=== PATIENT | female | born 1985 | race Caucasian/White ===

== ENCOUNTER 2018-04-01 13:13 | Emergency (ER) | payer OTHER ==
[2018-04-01 13:39] VITALS: RESP 18; TEMP 98
[2018-04-01] MEDS ORDERED: HYDROcodone/APAP 10-325MG 1 EACH TAB PO ONE (14:29)
[2018-04-01] MEDS ORDERED: GABAPENTIN 100 MG CAP PO STA (14:29)
[2018-04-01] MEDS ORDERED: ACYCLOVIR 400 MG/10 ML CUP PO ONE (14:29)
--- NOTE | 2018-04-01 14:42 | ED ---
Skin/Abscess/FB HPI - General Chief complaint: Skin/Abscess/Foreign Body Stated complaint: bug bite on back Time Seen by Provider: 04/01/18 13:40 Source: patient, RN notes reviewed, old records reviewed Mode of arrival: ambulatory Limitations: no limitations - History of Present Illness Initial comments: this patient's a 33-year-old female presents emergency Department chief complaint of a rash for the past week on the right side of her back. Patient reports that she initially thought it was a bite. She also has history of Crohn 's. He complains that it is backing up. [facility] yesterday and anxiety for her Crohn's. He had a full workup at that time. Was told she had a urinary tract infection. Patient is currently on ciprofloxacin. Patient reports that the rash is extremely painful. - Related Data Home Medications Medication Instructions Recorded Confirmed Ciprofloxacin HCl [Cipro] 500 mg PO Q12HR 04/01/18 04/01/18 Previous Rx's Medication Instructions Recorded Acyclovir 800 mg PO 5XD 7 Days 04/01/18 Gabapentin [Neurontin] 300 mg PO BID #21 cap 04/01/18 HYDROcodone/APAP 5-325MG [[place] 1 tab PO Q6HR PRN 3 Days #12 tab 04/01/18 5-325] Allergies Allergy/AdvReac Type Severity Reaction Status Date / Time No Known Allergies Allergy Verified 10/31/15 15:01 Review of Systems ROS Statement: Those systems with pertinent positive or pertinent negative responses have been documented in the HPI. ROS Other: All systems not noted in ROS Statement are negative. Past Medical History Additional Past Medical History / Comment(s): Crohns History of Any Multi-Drug Resistant Organisms: C-DIFF Date of last positivie culture/infection: 2013 MDRO Source:: stool Past Surgical History: Tubal Ligation Additional Past Surgical History / Comment(s): RIGHT BREAST LUMPECTOMY Past Psychological History: Anxiety Smoking Status: Never smoker Past Alcohol Use History: Occasional Past Drug Use History: Marijuana General Exam - General Exam Comments Initial Comments: 33-year-old female. Alert and oriented. No acute distress. General: Well appearing, well nourished, in no distress. Oriented x 3, normal mood and affect . Ambulating without difficulty. Skin: patient has a shingles like rash over the T6 dermatome radiating from the right flank area around the rib cage underneath breasts. The lesions are crusted over. There is new erythematous lesions as well. Hair: Normal texture and distribution. HEENT: Head: Normocephalic, atraumatic, no visible or palpable masses, depressions, or scaring. Eyes: Visual acuity intact, conjunctiva clear, sclera non-icteric, EOM intact, PERRL. Ears: EACs clear, TMs translucent & cone of light visualized. hearing intact. Nose: No external lesions, mucosa non-inflamed, septum and turbinates normal Mouth: Mucous membranes moist, no mucosal lesions. Teeth/Gums: No obvious caries or periodontal disease. No gingival inflammation or significant resorption. Pharynx: Mucosa non-inflamed, no tonsillar hypertrophy or exudate Neck: Supple, without lesions, bruits, or adenopathy, thyroid non-enlarged and non-tender Heart: No cardiomegaly or thrills; regular rate and rhythm, no murmur or gallop Lungs: Clear to auscultation and percussion Abdomen: Bowel sounds normal, no tenderness, organomegaly, masses, or hernia Back: patient has evidence of she will like rash over the T12 6 dermatome. Extremities: No amputations or deformities, cyanosis, edema or varicosities, peripheral pulses intact Musculoskeletal: Normal gait and station. No misalignment, asymmetry, crepitation, defects, tenderness, masses, effusions, decreased range of motion, instability, atrophy or abnormal strength or tone in the head, neck, spine, ribs , pelvis or extremities. Limitations: no limitations Course Vital Signs 04/01/18 04/01/18 13:35 14:46 Temperature 98 F Pulse Rate 104 H 99 Respiratory 18 18 Rate Blood Pressure 143/100 156/106 O2 Sat by Pulse 98 98 Oximetry Medical Decision Making - Medical Decision Making 33-year-old female presents emergency room and she plans rash over her back. Patient has evidence of shingles. I discussed that she needs to avoid any weight is not vaccinated for chickenpox or shingles have the virus in the past. Patient will be placed on acyclovir and she came in significant pain. Will be discharged with pain medication and gabapentin. Discussed she should follow- up with her primary care provider. I offered workup for her Crohn's disease but she declined at this time patient was treatment for the rash. Patient agrees to treatment plan will comply. Return parameters were discussed. Disposition Clinical Impression: Shingles Disposition: HOME SELF-CARE Condition: Good Instructions: Shingles (ED) Additional Instructions: Patient is to follow-up with primary care provider. Return to the emergency department if any alarming signs or symptoms occur. [facility] Take all the medications as prescribed. Patient should avoid being around immunocompromise patients, her people not had the shingles or chickenpox vaccine. [place]: [phone] [place] [id number] Appointment is Necessary Call @6AM Wednesday, Wednesday, Wednesday & 8am-11am Only take patients with no insurance or Medicaid. ---Do not accept patient with Blue Cross, Medicare, or Commerical Insurance Prescriptions: Acyclovir 800 mg PO 5XD 7 Days Gabapentin [Neurontin] 300 mg PO BID #21 cap HYDROcodone/APAP 5-325MG [[place] 5-325] 1 tab PO Q6HR PRN 3 Days #12 tab PRN Reason: Pain Is patient prescribed a controlled substance at d/c from ED?: No If prescribed controlled substance>3 days was MAPS reviewed?: No When asked, does pt state using other controlled substances?: No Referrals: Denzel Mares DO [Primary Care Provider] - 1-2 days Time of Disposition: 14:38
[2018-04-01] MEDS ORDERED: ACYCLOVIR 200 MG CAP PO ONE (14:45)
[2018-04-01 14:47] VITALS: BP 156/106; PULSE 99
== END 2018-04-01 14:48 | disposition home or self-care (01) ==
LOC: EC 13:13
DX: B02.9 Zoster without complications (principal)
CPT/HCPCS: 99282

== ENCOUNTER 2018-07-20 07:56 | Day surgery (SDC) | payer OTHER ==
[2018-07-19 10:16] VITALS: BMI 17.9
[~2018-07-20 07:56] MED LIST: LACTATED RINGERS 1,000 ML IV SCH; LIDOCAINE 1% 20 ML VIAL (10MG/ML) FOR IV START INTRADERMA PRN
[2018-07-20 08:22] VITALS: TEMP 98.1
[2018-07-20] MEDS ORDERED: HYDROCORTISONE SUCCINATE 100 MG/2 ML VIAL IVP ONE (08:28)
[2018-07-20 08:34] LABS: Glucose,Whole Blood 83 mg/dL (75-99)
[2018-07-20] MEDS ORDERED: PROPOFOL 10 MG/ML 20 ML VIAL IV ONE (08:57)
--- NOTE | 2018-07-20 09:20 | P.PCN ---
Date of Procedure: 07/20/18 Procedure(s) Performed: BRIEF HISTORY: Patient is a 33-year-old pleasant white female, scheduled for an elective colonoscopy as a part of value should long standing history of CROHN'S colitis diagnosed 20 years ago. She was maintained on Humira in 2014 2016 but her insurance changed and hence she stopped the medication about a year ago. Her last 4 months she is been having intermittent problems daily with blood or mucus in the stool. She is hence scheduled for colonoscopy to evaluate further. PROCEDURE PERFORMED: Colonoscopy with random biopsies PREOPERATIVE DIAGNOSIS: Long-standing history of Crohn's colitis now with abdominal pain, diarrhea and rectal bleeding IV sedation per Anesthesia. PROCEDURE: After informed consent was obtained, the patient, was brought into the endoscopy unit. IV sedation was administered by Anesthesia under continuous monitoring. Digital rectal examination was normal. Initially the Olympus CF- 160 flexible video colonoscope was then inserted in the rectum, gradually advanced into the cecum without any difficulty. Careful examination was performed as the scope was gradually being withdrawn. Ileocecal valve and the appendiceal orifice were visualized and appeared normal. Prep was excellent. Terminal ileum was intubated and 20 cm which was appeared normal. Mucosa of the cecum, ascending colon, transverse colon, descending colon, had scattered superficial ulcerations with normal appearing intervening mucosa and multiple biopsies were done from this area. The mucosa of the sigmoid colon, and rectum had deep serpiginous ulcerations with some cobblestoning of the mucosa, friability, erythema and spontaneously consistent with severe Sigmoiditis. Multiple biopsies were done from this area.. Retroflexion was performed in the rectum and no lesions were seen. The patient tolerated the procedure well. IMPRESSION: Active Crohn's colitis involving the rectum and sigmoid colon with deep mucosal serpiginous ulcerations, friability of the mucosa and severe inflammation Scattered superficial serpiginous ulcerations involving the descending colon ascending colon and the cecum status post multiple biopsies. Intervening mucosa appeared normal. RECOMMENDATIONS: Findings of this examination were discussed with the patient as well as her family. She was advised to follow with the biopsy results. She will continue with prednisone 40 mg daily and she'll be seen in the office in 2 weeks.
[2018-07-20 09:26] VITALS: RESP 16
[2018-07-20 09:40] VITALS: PULSE 98
[2018-07-20 10:14] VITALS: BP 140/90
== END 2018-07-20 10:15 | disposition home or self-care (01) ==
LOC: ORWHC2ENDO 07:56
PROVIDERS: ATTEND Internal Medicine Gastroenterology
DX: K52.9 Noninfective gastroenteritis and colitis, unspecified (principal); K63.3 Ulcer of intestine; K62.89 Other specified diseases of anus and rectum; K50.10 Crohn's disease of large intestine without complications; Z79.891 Long term (current) use of opiate analgesic; Z79.52 Long term (current) use of systemic steroids; Z79.899 Other long term (current) drug therapy
CPT/HCPCS: 81025; 88305; 45380; J1720; J2704

== ENCOUNTER → 2020-04-24 | Outpatient (CLI) | payer OTHER ==
[2020-04-24 15:26] LABS: HGB 9.8 gm/dL (11.4-16.0); RBC 4.32 m/uL (3.80-5.40); WBC 14.6 k/uL (3.8-10.6)
[2020-04-24 15:27] LABS: Basophils % (A) 0 %; Eosinophils % (A) 1 %; HCT 32.4 % (34.0-46.0); Hypochromasia Moderate; Lymphocytes % (A) 8 %; MCH 23.4 pg (25.0-35.0); MCHC 30.4 g/dL (31.0-37.0); MCV 76.9 fL (80.0-100.0); Mean Platelet Volume 6.5; Monocytes % (A) 4 %; Neutrophils % (A) 87 %; Platelet Count 574 k/uL (150-450); RDW 14.4 % (11.5-15.5)
[2020-04-24 15:28] LABS: Eosinophils # (A) 0.1 k/uL (0-0.7); Lymphocytes # (A) 1.2 k/uL (1.0-4.8); Monocytes # (A) 0.6 k/uL (0-1.0); Neutrophils # (A) 12.6 k/uL (1.3-7.7)
[2020-04-24 16:10] LABS: Erythrocyte Sedimentation Rate 37 mm/hr (0-20)
[2020-04-24 22:43] LABS: African American GFR (CKD) 109.2 (60.0-200.0); Albumin 3.5 g/dL (3.80-4.90); Albumin/Globulin Ratio 1.4 (1.60-3.17); Anion Gap 5.6 mmol/L (4.00-12.00); BUN/Creat Ratio 17.5 Ratio (12.00-20.00); Calcium 8.6 mg/dL (8.7-10.3); Carbon Dioxide 32.4 mmol/L (21.6-31.8); Globulin 2.5 g/dL (1.6-3.3); Non-African American GFR(CKD) 94.2 (60.0-200.0); Potassium 3.6 mmol/L (3.5-5.5); Total Bilirubin 0.2 mg/dL (0.3-1.2)
[2020-04-26 13:18] LABS: Hepatitis A Antibody IgM Non-Reactive (Non-Reactive); Hepatitis B Core IgM Non-Reactive (Non-Reactive); Hepatitis B Surface Antigen Non-Reactive (Non-Reactive); Hepatitis C IgG Antibody Non-Reactive (Non-Reactive)
== END | disposition home or self-care (01) ==
LOC: LABWHC1 13:56 → MERGE 13:56
PROVIDERS: ATTEND Internal Medicine Gastroenterology
DX: K50.90 Crohn's disease, unspecified, without complications (principal)
CPT/HCPCS: 36415; 80053; 80074; 85025; 85652; 86140; 86480

== ENCOUNTER 2020-07-31 10:00 | Day surgery (SDC) | payer OTHER ==
[2020-07-29 11:38] VITALS: BMI 19.3
[~2020-07-31 10:00] MED LIST changes: -LIDOCAINE 1% 20 ML VIAL (10MG/ML) FOR IV START INTRADERMA PRN; +ONDANSETRON 4 MG/2 ML VIAL IVP PRN
[2020-07-31 11:01] VITALS: RESP 16; TEMP 97.6
[2020-07-31] MEDS ORDERED: PROPOFOL 10 MG/ML 20 ML VIAL IV ONE (11:38)
--- NOTE | 2020-07-31 11:57 | P.PCN ---
Date of Procedure: 07/31/20 Procedure(s) Performed: BRIEF HISTORY: Patient is a 35-year-old pleasant white female scheduled for an elective colonoscopy as a part of surveillance of long-standing history of Crohn's colitis diagnosed in 1996. She is presently maintained on Humira every other week and had a recent flareup and currently and given doses of prednisone. She is scheduled for a surveillance colonoscopy today. PROCEDURE PERFORMED: Colonoscopy with random biopsies. PREOPERATIVE DIAGNOSIS: Long-standing historyf Crohn's colitis. IV sedation per Anesthesia. PROCEDURE: After informed consent was obtained, the patient, was brought into the endoscopy unit. IV sedation was administered by Anesthesia under continuous monitoring. Digital rectal examination was normal. Initially the Olympus CF-160 flexible video colonoscope was then inserted in the rectum, gradually advanced into the cecum without any difficulty. Careful examination was performed as the scope was gradually being withdrawn. Ileocecal valve and the appendiceal orifice were visualized and appeared normal. Prep was excellent. Mucosa of the cecum, a scending colon appeared normal. A few scattered erosions noted in the transverse colon, descending colon and biopsies were done from this area. There was active Crohn's colitis involving the sigmoid colon and rectum with multiple serpiginous ulcerations and mucosal erythema friability and spontaneous bleeding and some narrowing of the sigmoid colon, consistent with active colitis and multiple biopsies were done from this area. Rtroflexion was performed in the rectum and no lesions were seen. The patient tolerated the procedure well. IMPRESSION: 1.Serpiginous linear ulcerations with exudates noted in the rectum sigmoid colon with some narrowing of the sigmoid colon consistent with active colitis 2. Scattered superficial ulcerations noted in the descending colon and transverse colon was biopsied 3. Terminal ileum and right colon appeared normal 4. Large edematous skin tags RECOMMENDATIONS: Findings of this examination were discussed with the patient as well as a family. She will continue with Humira every 2 weeks. She'll follow with the biopsy results. Advised to continue tapering the prednisone. She'll be seen in office in 2 weeks and will discuss possibility of starting on immunomodulators as a part of treatment of active Crohn's colitis.
[2020-07-31 12:36] VITALS: BP 152/101; PULSE 88
== END 2020-07-31 12:53 | disposition home or self-care (01) ==
LOC: ORWHC2ENDO 10:00
PROVIDERS: ATTEND Internal Medicine Gastroenterology
DX: Z12.11 Encounter for screening for malignant neoplasm of colon (principal); K50.10 Crohn's disease of large intestine without complications; K63.3 Ulcer of intestine; L91.8 Other hypertrophic disorders of the skin; F41.9 Anxiety disorder, unspecified; Z79.899 Other long term (current) drug therapy; Z79.52 Long term (current) use of systemic steroids; Z79.891 Long term (current) use of opiate analgesic; Z98.890 Other specified postprocedural states
CPT/HCPCS: 81025; 88305; 84703; 45380; J2704

== ENCOUNTER → 2020-08-26 | Outpatient (CLI) | payer OTHER ==
[2020-08-26 16:21] LABS: Anisocytosis Slight; Basophils % (A) 1 %; Eosinophils # (A) 0.1 k/uL (0-0.7); Eosinophils % (A) 1 %; HCT 34.3 % (34.0-46.0); HGB 10.6 gm/dL (11.4-16.0); Hypochromasia Marked; Lymphocytes # (A) 1.7 k/uL (1.0-4.8); Lymphocytes % (A) 18 %; MCH 23.6 pg (25.0-35.0); MCV 76.1 fL (80.0-100.0); Mean Platelet Volume 6.4; Microcytosis Slight; Monocytes # (A) 0.7 k/uL (0-1.0); Monocytes % (A) 7 %; Neutrophils # (A) 6.7 k/uL (1.3-7.7); Neutrophils % (A) 71 %; Platelet Count 391 k/uL (150-450); RBC 4.51 m/uL (3.80-5.40); RDW 16.9 % (11.5-15.5); WBC 9.4 k/uL (3.8-10.6)
[2020-08-26 23:48] LABS: Erythrocyte Sedimentation Rate 24 mm/Hr (0-20)
[2020-08-27 03:54] LABS: % Iron Saturation 10.72 (12.00-45.00); African American GFR (CKD) 128.3 (60.0-200.0); Albumin 3.8 g/dL (3.80-4.90); Albumin/Globulin Ratio 1.41 (1.60-3.17); Anion Gap 7.1 mmol/L (4.00-12.00); BUN/Creat Ratio 15.71 Ratio (12.00-20.00); C Reactive Protein 0.4 mg/dL (0.0-0.8); Calcium 8.7 mg/dL (8.7-10.3); Carbon Dioxide 25.9 mmol/L (21.6-31.8); Ferritin 0.5 ng/mL (10.0-291.0); Globulin 2.7 g/dL (1.6-3.3); Non-African American GFR(CKD) 110.7 (60.0-200.0); Potassium 3.9 mmol/L (3.5-5.5); Total Bilirubin 0.2 mg/dL (0.3-1.2); Total Protein 6.5 g/dL (6.2-8.2)
== END | disposition home or self-care (01) ==
LOC: LABWHC1 15:56
PROVIDERS: ATTEND Internal Medicine Gastroenterology
DX: K50.10 Crohn's disease of large intestine without complications (principal); D50.9 Iron deficiency anemia, unspecified
CPT/HCPCS: 36415; 80053; 82728; 83540; 83550; 85025; 85652; 86140

== ENCOUNTER → 2020-09-25 | Outpatient (CLI) | payer OTHER ==
[2020-09-25 15:49] LABS: Anisocytosis Slight; Basophils % (A) 0 %; Eosinophils # (A) 0.1 k/uL (0-0.7); Eosinophils % (A) 1 %; HCT 34.1 % (34.0-46.0); HGB 10.5 gm/dL (11.4-16.0); Hypochromasia Slight; Lymphocytes # (A) 1.7 k/uL (1.0-4.8); Lymphocytes % (A) 16 %; MCH 22.9 pg (25.0-35.0); MCHC 30.9 g/dL (31.0-37.0); MCV 74.2 fL (80.0-100.0); Microcytosis Moderate; Monocytes # (A) 0.7 k/uL (0-1.0); Monocytes % (A) 6 %; Neutrophils # (A) 7.7 k/uL (1.3-7.7); Neutrophils % (A) 74 %; Platelet Count 547 k/uL (150-450); RDW 16.9 % (11.5-15.5); WBC 10.3 k/uL (3.8-10.6)
[2020-09-26 00:42] LABS: African American GFR (CKD) 109.2 (60.0-200.0); Albumin 3.9 g/dL (3.80-4.90); Albumin/Globulin Ratio 1.34 (1.60-3.17); Anion Gap 7.6 mmol/L (4.00-12.00); BUN/Creat Ratio 16.25 Ratio (12.00-20.00); Calcium 9.2 mg/dL (8.7-10.3); Carbon Dioxide 26.4 mmol/L (21.6-31.8); Globulin 2.9 g/dL (1.6-3.3); Non-African American GFR(CKD) 94.2 (60.0-200.0); Total Bilirubin 0.2 mg/dL (0.3-1.2); Total Protein 6.8 g/dL (6.2-8.2)
== END | disposition home or self-care (01) ==
LOC: LABWHC1 15:15
PROVIDERS: ATTEND Internal Medicine Gastroenterology
DX: K50.10 Crohn's disease of large intestine without complications (principal)
CPT/HCPCS: 36415; 80053; 82542; 82657; 85025

== ENCOUNTER → 2022-02-04 | Outpatient (CLI) | payer OTHER ==
[2022-02-04 14:47] LABS: C Reactive Protein <0.30 mg/dL (0.00-0.80); Rheumatoid Factor, Qnt <10 IU/mL (0-15)
[2022-02-05 09:30] LABS: Angiotensin-1 Converting Enz. 24 U/L (8-52)
[2022-02-05 10:36] LABS: HLA B27 POSITIVE
== END | disposition home or self-care (01) ==
LOC: LABWHC1 09:22
PROVIDERS: ATTEND Ophthalmology
DX: H44.139 Sympathetic uveitis, unspecified eye (principal)
CPT/HCPCS: 36415; 82164; 85549; 85652; 86038; 86140; 86235; 86431; 86780; 86812

== ENCOUNTER 2023-04-13 01:37 | Emergency (ER) | payer OTHER ==
[2023-04-13 01:50] VITALS: BP 147/99; PULSE 94; RESP 18; TEMP 98
[2023-04-13 03:53] LABS: Basophils % (A) 0 %; Eosinophils # (A) 0.1 k/uL (0-0.7); Eosinophils % (A) 1 %; HCT 40.2 % (34.0-46.0); HGB 13.3 gm/dL (11.4-16.0); Lymphocytes # (A) 1.4 k/uL (1.0-4.8); Lymphocytes % (A) 17 %; MCV 84.8 fL (80.0-100.0); Monocytes # (A) 0.7 k/uL (0-1.0); Monocytes % (A) 8 %; Neutrophils % (A) 71 %; Platelet Count 316 k/uL (150-450); RBC 4.74 m/uL (3.80-5.40); RDW 14.1 % (11.5-15.5); WBC 8.5 k/uL (3.8-10.6)
[2023-04-13 04:04] LABS: ALT 11 U/L (4-34); AST 15 U/L (14-36); African American GFR (CKD) >90 (>60 ml/min/1.73 sqM); Alkaline Phosphatase 63 U/L (38-126); Anion Gap 11 mmol/L; Blood Urea Nitrogen 14 mg/dL (7-17); Calcium 9.1 mg/dL (8.4-10.2); Carbon Dioxide 23 mmol/L (22-30); Chloride 103 mmol/L (98-107); Glucose 97 mg/dL (74-99); Non-African American GFR(CKD) >90 (>60 ml/min/1.73 sqM); Potassium 3.5 mmol/L (3.5-5.1); Sodium 137 mmol/L (137-145); Total Bilirubin 0.4 mg/dL (0.2-1.3); Total Protein 7.4 g/dL (6.3-8.2)
[2023-04-13] MEDS ORDERED: ONDANSETRON 4 MG/2 ML VIAL IVP STA (04:35)
[2023-04-13] MEDS ORDERED: hydrOXYzine HCL 25 MG TAB PO STA (04:35)
--- NOTE | 2023-04-13 04:57 | XR ---
EXAM: XR Chest, 2 Views CLINICAL HISTORY: ITS.REASON XR Reason: CP TECHNIQUE: Frontal and lateral views of the chest. COMPARISON: No relevant prior studies available. FINDINGS: Lungs: No consolidation or mass. Pleural space: No effusion. Heart: No cardiomegaly. Bones/joints: No acute findings. IMPRESSION: No acute cardiopulmonary process.
--- NOTE | 2023-04-13 05:41 | ED ---
General Adult HPI - General Chief complaint: Chest Pain Stated complaint: POSSIBLE STROKE Time Seen by Provider: 04/13/23 03:22 Source: patient Mode of arrival: ambulatory Limitations: no limitations - History of Present Illness Initial comments: This is a 38-year-old female with a past medical history including ankylosing spondylitis, Crohn's disease presents emergency Department because "I feel like I'm going to have a stroke." When asked what she meant, she stated that "my blood pressure is high and I feel my heart racing through my hair." The patient stated that she is also been anxious of the last 2 days. The patient denied any acute chest pain however and denied any neurologic deficit including any weakness, numbness or tingling. The patient denied any other acute pain or complaints at this time. The patient did state that she normally is able to calm herself down but was unable to do so at this time. - Related Data Home Medications Medication Instructions Recorded Confirmed HYDROcodone/APAP 7.5-325MG [[place] 1 tab PO BID PRN 07/19/18 07/29/20 7.5-325] LORazepam [Ativan] 0.5 mg PO BID PRN 07/19/18 07/29/20 predniSONE 20 mg PO DAILY 07/19/18 07/29/20 Adalimumab [Humira] 40 mg SQ Q14D 07/29/20 07/29/20 Previous Rx's Medication Instructions Recorded hydrOXYzine HCL [Atarax] 50 mg PO BID #6 tablet 04/13/23 Allergies Allergy/AdvReac Type Severity Reaction Status Date / Time No Known Allergies Allergy Verified 04/13/23 01:48 Review of Systems ROS Statement: Those systems with pertinent positive or pertinent negative responses have been documented in the HPI. ROS Other: All systems not noted in ROS Statement are negative. Past Medical History Additional Past Medical History / Comment(s): Crohns, states blood in stool., "stomach pain"., hx c-diff (2013) History of Any Multi-Drug Resistant Organisms: None Reported Date of last positivie culture/infection: 2013 MDRO Source:: stool Past Surgical History: Tubal Ligation Additional Past Surgical History / Comment(s): RIGHT BREAST LUMPECTOMY-benign. tubal ligation x2 Past Anesthesia/Blood Transfusion Reactions: No Reported Reaction Past Psychological History: Anxiety Smoking Status: Former smoker Past Alcohol Use History: None Reported Past Drug Use History: Marijuana - Past Family History Mother Family Medical History: No Reported History General Exam Limitations: no limitations General appearance: alert, in no apparent distress, anxious Head exam: Present: atraumatic, normocephalic, normal inspection Eye exam: Present: normal appearance, PERRL Pupils: Present: normal accommodation ENT exam: Present: normal exam, normal oropharynx, mucous membranes moist Neck exam: Present: normal inspection, full ROM Respiratory exam: Present: normal lung sounds bilaterally Cardiovascular Exam: Present: regular rate, normal rhythm, normal heart sounds GI/Abdominal exam: Present: soft, normal bowel sounds Extremities exam: Present: normal inspection, full ROM Back exam: Present: normal inspection, full ROM Neurological exam: Present: alert, oriented X3, CN II-XII intact Psychiatric exam: Present: normal affect, normal mood Course Vital Signs 04/13/23 01:48 Temperature 98 F Pulse Rate 94 Respiratory 18 Rate Blood Pressure 147/99 O2 Sat by Pulse 98 Oximetry EKG Findings - EKG Comments: EKG Findings:: An EKG was obtained and was interpreted by myself showing a rate of 88, SD interval 100, QRS duration of 85 and QTC of 395. This EKG showed a normal sinus rhythm with no ST segment elevation or depression noted. Medical Decision Making - Medical Decision Making Was pt. sent in by a medical professional or institution (TABBY Mckay, OUTREACH ANALYST, urgent care, hospital, or senior living...) When possible be specific @ -No Did you speak to anyone other than the patient for history (EMS, parent, family, police, friend...)? What history was obtained from this source @ -No Did you review nursing and triage notes (agree or disagree)? Why? @ -I reviewed and agree with nursing and triage notes Were old charts reviewed (outside hosp., previous admission, EMS record, old EK G, old radiological studies, urgent care reports/EKG's, senior living records)? Report findings @ -No old charts were reviewed Differential Diagnosis (chest pain, altered mental status, abdominal pain women, abdominal pain men, vaginal bleeding, weakness, fever, dyspnea, syncope, headache, dizziness, GI bleed, back pain, seizure, CVA, palpatations, mental health)? @ -Anxiety, panic attack, hypertensive urgency EKG interpreted by me (3pts min.). @ -As above X-rays interpreted by me (1pt min.). @ -Chest x-ray was obtained and was interpreted by myself showing no acute process. CT interpreted by me (1pt min.). @ -None done U/S interpreted by me (1pt. min.). @ -None done What testing was considered but not performed or refused? (CT, X-rays, U/S, labs)? Why? @ -None What meds were considered but not given or refused? Why? @ -None Did you discuss the management of the patient with other professionals (professionals i.e. , PA, OUTREACH ANALYST, lab, RT, psych nurse, social worker health services, bander, teacher, staff combat information center officer, caser up)? Give summary @ -No Was smoking cessation discussed for >3mins.? @ -No Was critical care preformed (if so, how long)? @ -No Were there social determinants of health that impacted care today? How? (Homelessness, low income, unemployed, alcoholism, drug addiction, transportation, low edu. Level, literacy, decrease access to med. care, correction, rehab)? @ -No Was there de-escalation of care discussed even if they declined (Discuss DNR or withdrawal of care, Hospice)? DNR status @ -No What co-morbidities impacted this encounter? (DM, HTN, Smoking, COPD, CAD, Cancer, CVA, ARF, Chemo, Hep., AIDS, mental health diagnosis, sleep apnea, morbid obesity)? @ -Ankylosing spondylitis, Crohn's disease Was patient admitted / discharged? Hospital course, mention meds given and route, prescriptions, significant lab abnormalities, going to OR and other pertinent info. @ -The patient was seen and evaluated in emergency department. Physical exam, the patient was mildly anxious on arrival however vital signs were within normal limits and stable. Due to the nature the patient's complaints an hypertensive urgency, the patient had laboratory workup that was obtained and was all within normal limits. Chest x-ray was negative and EKG was negative. On reevaluation, the patient was given Zofran as well as hydroxyzine and was able to relax comfortably in the bed. The patient was likely having her symptoms secondary to anxiety and was stable for discharge home. The patient was given a prescription for hydroxyzine to be taken at home and told to follow-up with her primary care physician for further workup and evaluation. She was also advised report back to the emergency department if her symptoms became acutely worse. The patient was agreeable to this and all her questions were answered appropriate. The patient was discharged home in stable condition. Undiagnosed new problem with uncertain prognosis? @ -No Drug Therapy requiring intensive monitoring for toxicity (Heparin, Nitro, Insulin, Cardizem)? @ -No Were any procedures done? @ -No Diagnosis/symptom? @ -Hypertensive urgency, secondary to anxiety Acute, or Chronic, or Acute on Chronic? @ -Acute Uncomplicated (without systemic symptoms) or Complicated (systemic symptoms)? @ -Uncomplicated Side effects of treatment? @ -No Exacerbation, Progression, or Severe Exacerbation? @ -No Poses a threat to life or bodily function? How? (Chest pain, USA, NC, pneumonia, PE, COPD, DKA, ARF, appy, cholecystitis, CVA, Diverticulitis, Homicidal, Lopes icidal, threat to staff... and all critical care pts) @ -No - Lab Data Result diagrams: 04/13/23 03:43 04/13/23 03:43 Lab Results 04/13/23 04/13/23 04/13/23 Range/Units 03:43 03:43 03:43 WBC 8.5 (3.8-10.6) k/uL RBC 4.74 (3.80-5.40) m/uL Hgb 13.3 (11.4-16.0) gm/dL Hct 40.2 (34.0-46.0) % MCV 84.8 (80.0-100.0) fL MCH 28.0 (25.0-35.0) pg MCHC 33.0 (31.0-37.0) g/dL RDW 14.1 (11.5-15.5) % Plt Count 316 (150-450) k/uL MPV 7.0 Neutrophils % 71 % Lymphocytes % 17 % Monocytes % 8 % Eosinophils % 1 % Basophils % 0 % Neutrophils # 6.0 (1.3-7.7) k/uL Lymphocytes # 1.4 (1.0-4.8) k/uL Monocytes # 0.7 (0-1.0) k/uL Eosinophils # 0.1 (0-0.7) k/uL Basophils # 0.0 (0-0.2) k/uL Sodium 137 (137-145) mmol/L Potassium 3.5 (3.5-5.1) mmol/L Chloride 103 (98-107) mmol/L Carbon Dioxide 23 (22-30) mmol/L Anion Gap 11 mmol/L BUN 14 (7-17) mg/dL Creatinine 0.66 (0.52-1.04) mg/dL Est GFR (CKD-EPI)AfAm >90 (>60 ml/min/1.73 sqM) Est GFR (CKD-EPI)NonAf >90 (>60 ml/min/1.73 sqM) Glucose 97 (74-99) mg/dL Calcium 9.1 (8.4-10.2) mg/dL Magnesium 2.0 (1.6-2.3) mg/dL Total Bilirubin 0.4 (0.2-1.3) mg/dL AST 15 (14-36) U/L ALT 11 (4-34) U/L Alkaline Phosphatase 63 (38-126) U/L Troponin I <0.012 (0.000-0.034) ng/mL NT-Pro-B Natriuret Pep pg/mL Total Protein 7.4 (6.3-8.2) g/dL Albumin 4.0 (3.5-5.0) g/dL 04/13/23 Range/Units 03:43 WBC (3.8-10.6) k/uL RBC (3.80-5.40) m/uL Hgb (11.4-16.0) gm/dL Hct (34.0-46.0) % MCV (80.0-100.0) fL MCH (25.0-35.0) pg MCHC (31.0-37.0) g/dL RDW (11.5-15.5) % Plt Count (150-450) k/uL MPV Neutrophils % % Lymphocytes % % Monocytes % % Eosinophils % % Basophils % % Neutrophils # (1.3-7.7) k/uL Lymphocytes # (1.0-4.8) k/uL Monocytes # (0-1.0) k/uL Eosinophils # (0-0.7) k/uL Basophils # (0-0.2) k/uL Sodium (137-145) mmol/L Potassium (3.5-5.1) mmol/L Chloride (98-107) mmol/L Carbon Dioxide (22-30) mmol/L Anion Gap mmol/L BUN (7-17) mg/dL Creatinine (0.52-1.04) mg/dL Est GFR (CKD-EPI)AfAm (>60 ml/min/1.73 sqM) Est GFR (CKD-EPI)NonAf (>60 ml/min/1.73 sqM) Glucose (74-99) mg/dL Calcium (8.4-10.2) mg/dL Magnesium (1.6-2.3) mg/dL Total Bilirubin (0.2-1.3) mg/dL AST (14-36) U/L ALT (4-34) U/L Alkaline Phosphatase (38-126) U/L Troponin I (0.000-0.034) ng/mL NT-Pro-B Natriuret Pep 45 pg/mL Total Protein (6.3-8.2) g/dL Albumin (3.5-5.0) g/dL Disposition Clinical Impression: Hypertension, Anxiety Disposition: HOME SELF-CARE Condition: Stable Instructions (If sedation given, give patient instructions): Hypertension (ED), Anxiety (ED) Prescriptions: hydrOXYzine HCL [Atarax] 50 mg PO BID #6 tablet Is patient prescribed a controlled substance at d/c from ED?: No Referrals: None,Stated [Primary Care Provider] - 1-2 days Time of Disposition: 05:30
== END 2023-04-13 06:09 | disposition home or self-care (01) ==
LOC: EC 01:37
DX: I10 Essential (primary) hypertension (principal); F41.9 Anxiety disorder, unspecified; Z87.891 Personal history of nicotine dependence; F12.90 Cannabis use, unspecified, uncomplicated; Z79.899 Other long term (current) drug therapy
CPT/HCPCS: 36415; 93005; 83880; 80053; 83735; 84484; 85025; 71046; 99285; 96374; J2405

== ENCOUNTER → 2023-04-21 | Outpatient (CLI) | payer OTHER ==
[2023-04-21 23:28] LABS: Hepatitis B Surface Antigen Nonreactive; Hepatitis C IgG Antibody Nonreactive
[2023-04-22 02:04] LABS: ALT 7 U/L (8-44); AST 11 U/L (13-35); Albumin 4.2 d/dL (3.8-4.9); Alkaline Phosphatase 64 U/L (41-126); BUN/Creat Ratio 20.25 Ratio (12.00-20.00); Blood Urea Nitrogen 16.2 mg/dL (9.0-27.0); Calcium 9.7 mg/dL (8.7-10.3); Carbon Dioxide 27.7 mmol/L (21.6-31.8); Chloride 103 mmol/L (96-109); Glucose 80 mg/dL (70-110); Potassium 4.1 mmol/L (3.5-5.5); Sodium 142 mmol/L (135-145); Total Bilirubin 0.2 mg/dL (0.3-1.2); Total Protein 7.2 d/dL (6.2-8.2)
[2023-04-22 07:37] LABS: Basophils # (A) 0.03 X 10*3/uL (0.00-0.10); Basophils % (A) 0.3 %; Eosinophils # (A) 0.08 X 10*3/uL (0.04-0.35); Eosinophils % (A) 0.7 %; HCT 39.5 % (37.2-46.3); HGB 12.4 d/dL (12.0-15.0); Lymphocytes # (A) 1.54 X 10*3/uL (0.90-5.00); MCH 28.3 pg (27.0-32.0); MCHC 31.4 d/dL (32.0-37.0); MCV 90.2 FL (80.0-97.0); Mean Platelet Volume 10.2 FL (9.5-12.2); Monocytes # (A) 0.81 X 10*3/uL (0.20-1.00); Monocytes % (A) 7.4 %; NRBC Per 100 WBC 0 X 10*3/uL (0.00-0.01); Neutrophils # (A) 8.52 X 10*3/uL (1.80-7.70); Neutrophils % (A) 77.3 %; Platelet Count 400 X 10*3/uL (140-440); RBC 4.38 X 10*6/uL (4.10-5.20); RDW 13.9 % (11.5-14.5); WBC 11.01 X 10*3/uL (4.50-10.00)
== END | disposition home or self-care (01) ==
LOC: LABWHC1 15:25
PROVIDERS: ATTEND Internal Medicine Gastroenterology
DX: K50.10 Crohn's disease of large intestine without complications (principal); D50.9 Iron deficiency anemia, unspecified
CPT/HCPCS: 36415; 80053; 85025; 86140; 86480; 86704; 86803; 87340

== ENCOUNTER → 2023-06-04 | Day surgery (SDC) | payer OTHER ==
[2023-06-01 15:08] VITALS: BMI 22.6
[~2023-06-04] MED LIST changes: +LIDOCAINE 1% (10MG/ML) FOR IV START INTRADERMA PRN; -ONDANSETRON 4 MG/2 ML VIAL IVP PRN; +ONDANSETRON 4 MG/2 ML VIAL ONE; +PROPOFOL 10 MG/ML 20 ML VIAL IV ONE
[2023-06-04 09:28] VITALS: RESP 14; TEMP 97.8
--- NOTE | 2023-06-04 09:58 | P.PCN ---
Date of Procedure: 06/04/23 Procedure(s) Performed: BRIEF HISTORY: Patient is a 38-year-old pleasant white female scheduled for an elective colonoscopy as a part of surveillance of long-standing history of "colitis diagnosed in 1996. The patient was maintained on Humira injections every week since 2017 Bactrim because of insurance reasons she has been started on and off. She did stop it in October 2022 are almost 6 months and just restarted yesterday. In the meantime she is having about 6-8 loose watery bowel movements with occasional blood in the stool. PROCEDURE PERFORMED: Colonoscop with biopsy y. PREOPERATIVE DIAGNOSIS: Long-standing history of Crohn's colitis. IV sedation per Anesthesia. PROCEDURE: After informed consent was obtained, the patient, was brought into the endoscopy unit. IV sedation was administered by Anesthesia under continuous monitoring. Digital rectal examination was normal. Initially the Olympus CF-160 flexible video colonoscope was then inserted in the rectum, gradually advanced into the cecum without any difficulty. Careful examination was performed as the scope was gradually being withdrawn. Ileocecal valve and the appendiceal orifice were visualized and appeared normal. Prep was excellent. Terminal ileum appeared normal. Mucosa of the cecum, ascending colon, transverse colon, descending colon, appeared normal. There was active colitis with air mucosal erythema, friability and serpiginous ulcerations and sigmoid narrowing extending from 20-30 cm from the anal verge and multiple biopsies were done from this area. The rectum appeared normal. Retroflexion was performed in the rectum and no lesions were seen. The patient tolerated the procedure well. IMPRESSION: Active Crohn's colitis involving the sigmoid colon extending from 20-30 cm from the anal verge with mucosal erythema, friability, serpiginous ulcerations and narrowing of the colonic lumen consistent with active Crohn's disease Rest of the colon appeared normal Terminal ileum appeared normal RECOMMENDATIONS: Findings of this examination were discussed with the patient as well as a family. She was advised to follow with the biopsies ulcer. In the meantime she will continue with Humira 40 mg every week and she'll be seen in office in one month..
[2023-06-04 10:44] VITALS: BP 176/107; PULSE 96
== END ==
LOC: ORWHC2ENDO 09:03
PROVIDERS: ATTEND Internal Medicine Gastroenterology
DX: K50.111 Crohn's disease of large intestine with rectal bleeding (principal); K63.3 Ulcer of intestine; Z87.891 Personal history of nicotine dependence; Z79.899 Other long term (current) drug therapy
CPT/HCPCS: 81025; 88305; 45380; J2405; J2704

== ENCOUNTER 2023-09-15 12:40 | Emergency (ER) | payer OTHER ==
[2023-09-15] MEDS ORDERED: METOCLOPRAMIDE 5 MG/ML 2 ML VIAL IVP STA (12:52)
--- NOTE | 2023-09-15 12:58 | ED ---
General Adult HPI - General Chief complaint: Shortness of Breath Stated complaint: Choking Time Seen by Provider: 09/15/23 12:50 Source: patient, family, RN notes reviewed, old records reviewed Mode of arrival: ambulatory Limitations: no limitations - History of Present Illness Initial comments: This is a 38-year-old male who presents emergency department stating that she was eating steak within the hour and it got stuck in her esophagus and she has been spitting up ever since. Patient states at first she thought she couldn't breathe but she seems to be breathing better now. try to give her the Heimlich maneuver but was unsuccessful. states he stuck his fingers down his throat and thinks he may have pushed down even further. Patient after that started bleeding and they're not sure where the blood is coming from at this time. Patient is able to breathe but intermittently is spitting up quite a bit of saliva with some bright red blood. Patient denies having this happen before. Patient states she was eating steak at that time. Patient denies any other symptoms at this time. Patient stated that when she initially swallowed it didn't feel like it went down into her wind pipe and then a little while later she was unable to keep any saliva down or swallow anything else. - Related Data Home Medications Medication Instructions Recorded Confirmed No Known Home Medications 06/01/23 06/01/23 Allergies Allergy/AdvReac Type Severity Reaction Status Date / Time No Known Allergies Allergy Verified 06/01/23 14:59 Review of Systems ROS Statement: Those systems with pertinent positive or pertinent negative responses have been documented in the HPI. ROS Other: All systems not noted in ROS Statement are negative. Past Medical History Past Medical History: Skin Disorder Additional Past Medical History / Comment(s): Crohns, states blood in stool, "stomach pain". Eczema. History of Any Multi-Drug Resistant Organisms: None Reported Date of last positivie culture/infection: 2013 MDRO Source:: stool Past Surgical History: Breast Surgery, Tubal Ligation Additional Past Surgical History / Comment(s): RIGHT BREAST LUMPECTOMY-benign, tubal ligation X2. Past Anesthesia/Blood Transfusion Reactions: No Reported Reaction Past Psychological History: Anxiety Smoking Status: Former smoker Past Alcohol Use History: None Reported Past Drug Use History: Marijuana - Past Family History Mother Family Medical History: No Reported History General Exam - General Exam Comments Initial Comments: GENERAL: Patient is well-developed and well-nourished. Patient is nontoxic and well- hydrated and is moderate distress. ENT: Neck is soft and supple. No significant lymphadenopathy is noted. Oropharynx is clear. Moist mucous membranes. Neck has full range of motion without eliciting any pain. EYES: The sclera were anicteric and conjunctiva were pink and moist. Extraocular movements were intact and pupils were equal round and reactive to light. Eyelids were unremarkable. PULMONARY: Unlabored respirations. Good breath sounds bilaterally. No audible rales rhonchi or wheezing was noted. CARDIOVASCULAR: There is a regular rate and rhythm without any murmurs gallops or rubs. ABDOMEN: Soft and nontender with normal bowel sounds. SKIN: Skin is clear with no lesions or rashes and otherwise unremarkable. NEUROLOGIC: Patient is alert and oriented x3. Cranial nerves II through XII are grossly intact. Motor and sensory are also intact. Normal speech, volume and content. Symmetrical smile. MUSCULOSKELETAL: Normal extremities with adequate strength and full range of motion. LYMPHATICS: No significant lymphadenopathy is noted PSYCHIATRIC: Normal psychiatric evaluation. Limitations: no limitations Course Vital Signs 09/15/23 09/15/23 12:41 13:20 Pulse Rate 132 H 132 H Respiratory 20 18 Rate Blood Pressure 137/81 131/98 O2 Sat by Pulse 98 99 Oximetry Medical Decision Making - Medical Decision Making Was pt. sent in by a medical professional or institution (TABBY Mckay, CONGREGATIONAL CARE PASTOR, urgent care, hospital, or senior care...) When possible be specific @ -No Did you speak to anyone other than the patient for history (EMS, parent, family, police, friend...)? What history was obtained from this source @ -No Did you review nursing and triage notes (agree or disagree)? Why? @ -I reviewed and agree with nursing and triage notes Were old charts reviewed (outside hosp., previous admission, EMS record, old EKG, old radiological studies, urgent care reports/EKG's, senior care records)? Report findings @ -No old charts were reviewed Differential Diagnosis (chest pain, altered mental status, abdominal pain women, abdominal pain men, vaginal bleeding, weakness, fever, dyspnea, syncope, headache, dizziness, GI bleed, back pain, seizure, CVA, palpatations, mental health, musculoskeletal)? @ -Esophageal foreign body, global hystericus, bronchial foreign body, this is not all inclusive list EKG interpreted by me (3pts min.). @ -As above X-rays interpreted by me (1pt min.). @ -None done CT interpreted by me (1pt min.). @ -None done U/S interpreted by me (1pt. min.). @ -None done What testing was considered but not performed or refused? (CT, X-rays, U/S, labs)? Why? @ -None What meds were considered but not given or refused? Why? @ -None Did you discuss the management of the patient with other professionals (professionals i.e. , PA, CONGREGATIONAL CARE PASTOR, lab, RT, psych nurse, home health care social worker, expediter service order, teacher, commercial loan officer, piano case and bench assembler)? Give summary @ -Spoke with Dr. Latham and she will get the Endo lab prepared for the patient c ould be taking up for an endoscopy and have the piece of meat removed Was smoking cessation discussed for >3mins.? @ -No Was critical care preformed (if so, how long)? @ -No Were there social determinants of health that impacted care today? How? (Homelessness, low income, unemployed, alcoholism, drug addiction, transportation, low edu. Level, literacy, decrease access to med. care, [facility], rehab)? @ -No Was there de-escalation of care discussed even if they declined (Discuss DNR or withdrawal of care, Hospice)? DNR status @ -No What co-morbidities impacted this encounter? (DM, HTN, Smoking, COPD, CAD, Cancer, CVA, ARF, Chemo, Hep., AIDS, mental health diagnosis, sleep apnea, morbid obesity)? @ -None Was patient admitted / discharged? Hospital course, mention meds given and route, prescriptions, significant lab abnormalities, going to OR and other pertinent info. @ -Dr. Latham's team came down and took the patient to the Endo lab patient was discharged from the emergency department Undiagnosed new problem with uncertain prognosis? @ -No Drug Therapy requiring intensive monitoring for toxicity (Heparin, Nitro, Insulin, Cardizem)? @ -No Were any procedures done? @ -No Diagnosis/symptom? @ -Esophageal foreign body Acute, or Chronic, or Acute on Chronic? @ -Acute Uncomplicated (without systemic symptoms) or Complicated (systemic symptoms)? @ -Complicated Side effects of treatment? @ -No Exacerbation, Progression, or Severe Exacerbation? @ -No Poses a threat to life or bodily function? How? (Chest pain, [place], [place], pneumonia, PE, COPD, DKA, ARF, appy, cholecystitis, CVA, Diverticulitis, Homicidal, Suicidal, threat to staff... and all critical care pts) @ -No. Patient was discharged from the emergency department Disposition Clinical Impression: Esophageal foreign body Disposition: HOME SELF-CARE Is patient prescribed a controlled substance at d/c from ED?: No Referrals: None,Stated [Primary Care Provider] - 1-2 days Time of Disposition: 14:19
[2023-09-15] MEDS: GLUCAGON 1 MG/ML VIAL IVP STA ×2 (13:03→13:20)
[2023-09-15] MEDS: NITROGLYCERIN SL TABS 0.4 MG TAB SUBLINGUAL STA ×2 (13:05→13:20)
[2023-09-15] MEDS ORDERED: METOCLOPRAMIDE 5 MG/ML 2 ML VIAL ONE (14:11)
[2023-09-15] MEDS ORDERED: SUCCINYLCHOLINE CHLORIDE 200 MG/10 ML VIAL IV ONE (14:15)
[2023-09-15] MEDS ORDERED: MIDAZOLAM 2 MG/2 ML VIAL ONE (14:15)
[2023-09-15] MEDS ORDERED: ESMOLOL 100 MG/10 ML VIAL ONE (14:15)
[2023-09-15] MEDS ORDERED: PROPOFOL 10 MG/ML 20 ML VIAL IV ONE (14:15)
[2023-09-15] MEDS ORDERED: LIDOCAINE 1% INJ 10MG/ML (20 ML MDV) ONE (14:15)
--- NOTE | 2023-09-15 14:40 | P.PCN ---
Date of Procedure: 09/15/23 Procedure(s) Performed: BRIEF HISTORY: Patient is a 38-year-old, pleasant, white female scheduled for an upper endoscopy as a part of evaluation of esophageal foreign body. Patient was eating steak this afternoon and had food impaction. In the emergency room and she is scheduled for an emergency upper endoscopy. PROCEDURE PERFORMED: Esophagogastroduodenoscopy with foreign body removal. PREOPERATIVE DIAGNOSIS: With acute food impaction. IV sedation per anesthesia. PROCEDURE: After informed consent was obtained, the patient was brought into the endoscopy unit. IV sedation was administered by Anesthesia under continuous monitoring. Initially the Olympus GIF-140 video endoscope was inserted into the mouth. Esophagus intubated without any difficulty. Immediately distal upper esophageal sphincter there was a large meat bolus that was impacted. Using a tripod was able to meet into smaller pieces and finally was able to push the meat bolus into the stomach. The scope at this time was gradually advanced into the stomach and duodenum and carefully examined. The bulb and the second part of the duodenum appeared normal. The scope at this time was withdrawn to the stomach, adequately insufflated with air, and upon careful examination, mucosa of the antrum, body, cardia and the fundus appeared normal. amount of liquid and solid food noted in the fundus of the stomach and the liquid was aspirated. The scope was then withdrawn into the esophagus. The GE junction was located at 39 cm from the incisors. The esophagus appeared normal. There were no erosions or ulcerations seen. The proximal cervical esophagus at the site of food impaction had mild erythema noted but no obvious stricture identified and the patient tolerated the procedure well. IMPRESSION: 1. Large piece of meat impacted in the proximal cervical esophagus status post removal as described above.. 2. Rest of the esophagus appeared normal. 3. Art amount of food in the fundus of the stomach.. RECOMMENDATIONS: The findings of this examination were discussed with the patient as well as a family. She was advised to be on a clear liquid diet for lunch and soft diet for dinner. .
[2023-09-15] MEDS ORDERED: SODIUM CHLORIDE 0.9% 500 ML 500 ML IV ONE (14:51)
[2023-09-15] MEDS ORDERED: LABETALOL SYRINGE 5 MG/ML (4 ML SYR) IVP ONE (15:29)
[2023-09-15] MEDS ORDERED: hydrALAZINE HCL 20 MG/ML 1 ML VIAL IVP ONE (15:42)
[2023-09-15] MEDS ORDERED: SODIUM CHLORIDE 0.9% 1,000 ML IV ONE ×2 (15:43)
[2023-09-15 16:45] VITALS: BP 144/78; PULSE 91; RESP 17
== END 2023-09-15 16:27 | disposition home or self-care (01) ==
LOC: EC 12:40
DX: T18.128A Food in esophagus causing other injury, initial encounter (principal); F12.90 Cannabis use, unspecified, uncomplicated; Z86.59 Personal history of other mental and behavioral disorders; Z87.891 Personal history of nicotine dependence
CPT/HCPCS: 99284; 36415; 84703; 43247; 96374; 96375 ×4; J2250; J0330; J0360; J1610; J2765; J3360; J2001; J2704; J1920; J1805

== ENCOUNTER → 2025-03-06 | Outpatient (CLI) | payer OTHER ==
--- NOTE | 2025-03-06 11:19 | MM ---
Reason for Exam: Clinical finding. Baseline mammogram. Indicated Problems: Lump or thickening of the right side for 2 Month(s). Patient History: Menarche at age 12. First Full-Term at age 19. Premenopausal. Maternal aunt (gr) had breast cancer. Risk Values: Nataly 5 year model risk: 0.5%. NCI Lifetime model risk: 8.1%. Prior Study Comparison: Patient's first Mammogram. Tissue Density: The breasts are extremely dense, which lowers the sensitivity of mammography. Findings: Analyzed By CAD. There appears to be nodular fibroglandular tissue at the site of clinical concern. Ultrasound is recommended. No suspicious microcalcifications within either breast. Overall Assessment: Incomplete: need additional imaging evaluation, BI-RAD 0 Management: Diagnostic Breast Ultrasound of the right breast. . Results were given to the patient verbally at the time of exam. Patient should continue monthly self-breast exams. A clinical breast exam by your physician is recommended on an annual basis. This exam should not preclude additional follow-up of suspicious palpable abnormalities. Note on Nataly scores and lifetime risk: 1. A Nataly score greater than 3% is considered moderate risk. If this is the case, consider specialist referral to assess eligibility for a risk reducing agent. 2. If overall lifetime risk for the development of breast cancer is 20% or higher, the patient may qualify for future screening with alternating mammogram and breast MRI. [facility], , 03/06/2025 11:16 AM. Electronically signed and approved by: Zi Abbott M.D. Radiologis
--- NOTE | 2025-03-06 11:33 | USB ---
Patient History: Menarche at age 12. First Full-Term at age 19. Premenopausal. Maternal aunt (gr) had breast cancer. Risk Values: Nataly 5 year model risk: 0.5%. NCI Lifetime model risk: 8.1%. Findings: There appears to be dense fibroglandular tissue at the site of clinical concern without distinct mass however precautionary six-month follow-up mammogram and ultrasound is recommended.. Overall Assessment: Probably benign, BI-RAD 3 Management: Diagnostic Mammogram of the right breast in 6 months. A clinical breast exam by your physician is recommended on an annual basis and results should be correlated with mammographic findings. This exam should not preclude additional follow-up of suspicious palpable abnormalities. Results were given to the patient verbally at the time of exam. [facility], , 03/06/2025 11:30 AM. Electronically signed and approved by: Zi Abbott M.D. Radiologis
== END | disposition home or self-care (01) ==
LOC: RADMAMWWP 10:39
PROVIDERS: ATTEND Surgery
DX: N63.10 Unspecified lump in the right breast, unspecified quadrant (principal); R92.343 Mammographic extreme density, bilateral breasts; Z80.3 Family history of malignant neoplasm of breast
CPT/HCPCS: 77066; 76642; G0279; 77062

== ENCOUNTER 2025-03-15 17:24 | Emergency (ER) | payer OTHER ==
[2025-03-15 17:33] VITALS: RESP 18; TEMP 97.8
--- NOTE | 2025-03-15 17:50 | XR ---
EXAMINATION TYPE: XR hand complete RT DATE OF EXAM: 03/15/2025 5:45 PM COMPARISON: None. CLINICAL INDICATION: Female, 40 years old with history of injury, pain TECHNIQUE: XR hand complete RT XX views were obtained. FINDINGS: There is no acute fracture/dislocation evident. The joint spaces appear within normal limits. There i s dorsal soft tissue swelling seen. IMPRESSION: No acute fracture or dislocation. [facility], , 03/15/2025 5:47 PM
--- NOTE | 2025-03-15 18:37 | ED ---
General Adult HPI - General Chief complaint: Extremity Injury, Upper Stated complaint: R Hand Injury Time Seen by Provider: 03/15/25 17:39 Source: patient, RN notes reviewed Mode of arrival: ambulatory Limitations: no limitations - History of Present Illness Initial comments: 40-year-old female presenting to the emergency department for complaint of right hand pain. Patient states that she works at a [employer] where she got her hand stuck in a tow mixer. She endorses diffuse pain over her hand. Denies paresthesias or loss of range of motion however states that is difficult to move her fingers as her hand is swollen. No other acute complaints at this time. - Related Data Previous Rx's Medication Instructions Recorded Ibuprofen [Motrin] 800 mg PO Q8HR PRN #30 tab 03/15/25 Allergies Allergy/AdvReac Type Severity Reaction Status Date / Time No Known Allergies Allergy Verified 03/15/25 17:34 Review of Systems ROS Statement: Those systems with pertinent positive or pertinent negative responses have been documented in the HPI. ROS Other: All systems not noted in ROS Statement are negative. Past Medical History Past Medical History: Skin Disorder Additional Past Medical History / Comment(s): Crohns, states blood in stool, "stomach pain". Eczema. History of Any Multi-Drug Resistant Organisms: None Reported Date of last positivie culture/infection: 2013 MDRO Source:: stool Past Surgical History: Breast Surgery, Tubal Ligation Additional Past Surgical History / Comment(s): RIGHT BREAST LUMPECTOMY-benign, tubal ligation X2. Past Anesthesia/Blood Transfusion Reactions: No Reported Reaction Past Psychological History: Anxiety Smoking Status: Former smoker Past Alcohol Use History: None Reported Past Drug Use History: Marijuana - Past Family History Mother Family Medical History: No Reported History General Exam Limitations: no limitations ENT exam: Present: normal exam, mucous membranes moist Respiratory exam: Present: normal lung sounds bilaterally. Absent: respiratory distress, wheezes, rales, rhonchi, stridor Cardiovascular Exam: Present: regular rate, normal rhythm, normal heart sounds. Absent: systolic murmur, diastolic murmur, rubs, gallop, clicks GI/Abdominal exam: Present: soft, normal bowel sounds. Absent: distended, tenderness, guarding, rebound, rigid Right Hand Wrist exam: Present: tenderness, swelling, ecchymosis. Absent: laceration, deformity, crepitus Neuro motor exam: Present: wrist extension intact, thumb opposition intact Vascular: Present: normal capillary refill, radial pulse (2+). Absent: vascular compromise Back exam: Present: normal inspection Course Vital Signs 03/15/25 03/15/25 17:31 19:22 Temperature 97.8 F 97.8 F Pulse Rate 96 75 Respiratory 18 18 Rate Blood Pressure 149/104 140/89 O2 Sat by Pulse 100 98 Oximetry Medical Decision Making - Medical Decision Making Was pt. sent in by a medical professional or institution (, PA, YARDAGE ESTIMATOR, urgent care, hospital, or fpc...) When possible be specific @ -No Did you speak to anyone other than the patient for history (EMS, parent, family, police, friend...)? What history was obtained from this source @ -No Did you review nursing and triage notes (agree or disagree)? Why? @ -I reviewed and agree with nursing and triage notes Were old charts reviewed (outside hosp., previous admission, EMS record, old EKG, old radiological studies, urgent care reports/EKG's, fpc records)? Report findings @ -No old charts were reviewed Differential Diagnosis (chest pain, altered mental status, abdominal pain women, abdominal pain men, vaginal bleeding, weakness, fever, dyspnea, syncope, headache, dizziness, GI bleed, back pain, seizure, CVA, palpatations, mental health, musculoskeletal)? @ -Differential Musculoskeletal Muscular strain, contusion, ligament sprain, fracture, arthritis, septic arthritis, bursitis, cellulitis, muscle spasm, nerve compression, DVT, arterial occlusion, herpes zoster, electrolyte abnormality, tumor.... This is not meant to be in all inclusive list EKG interpreted by me (3pts min.). @ -None X-rays interpreted by me (1pt min.). @ -X-ray of the right hand reveals no acute fracture or dislocation. CT interpreted by me (1pt min.). @ -None done U/S interpreted by me (1pt. min.). @ -None done What testing was considered but not performed or refused? (CT, X-rays, U/S, labs)? Why? @ -None What meds were considered but not given or refused? Why? @ -None Did you discuss the management of the patient with other professionals (professionals i.e. , PA, YARDAGE ESTIMATOR, lab, RT, psych nurse, social science professor, socket welder helper, teacher, artillery officer, case therapist)? Give summary @ -No Was smoking cessation discussed for >3mins.? @ -No Was critical care preformed (if so, how long)? @ -No Were there social determinants of health that impacted care today? How? (Homelessness, low income, unemployed, alcoholism, drug addiction, transportation, low edu. Level, literacy, decrease access to med. care, [facility], rehab)? @ -No Was there de-escalation of care discussed even if they declined (Discuss DNR or withdrawal of care, Hospice)? DNR status @ -No What co-morbidities impacted this encounter? (DM, HTN, Smoking, COPD, CAD, Cancer, CVA, ARF, Chemo, Hep., AIDS, mental health diagnosis, sleep apnea, morbid obesity)? @ -None Was patient admitted / discharged? Hospital course, mention meds given and route, prescriptions, significant lab abnormalities, going to OR and other pertinent info. @ -Discharge. 40-year-old female presenting to emergency department for right hand pain. There is noted ecchymosis and swelling of the right ventral and dorsum of the hand. Patient has full range of motion of the 5 digits. No neurovascular deficits. She is provided with dose of Motrin for pain relief. X- ray imaging no acute fractures. Patient is placed in Thony wrap and instructed to continue supportive treatment. Recommend with patient if pain worsens or does not improve report back to the emergency department after primary care provider for repeat x-ray imaging. Case discussed with Dr. Lowery Undiagnosed new problem with uncertain prognosis? @ -No Drug Therapy requiring intensive monitoring for toxicity (Heparin, Nitro, Insulin, Cardizem)? @ -No Were any procedures done? @ -No Diagnosis/symptom? @ -Hand sprain Acute, or Chronic, or Acute on Chronic? @ -Acute Uncomplicated (without systemic symptoms) or Complicated (systemic symptoms)? @ -Uncomplicated Side effects of treatment? @ -No Exacerbation, Progression, or Severe Exacerbation? @ -No Poses a threat to life or bodily function? How? (Chest pain, [place], [place], pneumonia, PE, COPD, DKA, ARF, appy, cholecystitis, CVA, Diverticulitis, Homicidal, Suicidal, threat to staff... and all critical care pts) @ -No Disposition Clinical Impression: Hand sprain Disposition: HOME SELF-CARE Condition: Good Instructions (If sedation given, give patient instructions): Hand Sprain (ED) Additional Instructions: Please return to the Emergency Department if symptoms worsen or any other concerns. Prescriptions: Ibuprofen [Motrin] 800 mg PO Q8HR PRN #30 tab PRN Reason: Pain Is patient prescribed a controlled substance at d/c from ED?: No Referrals: None,Stated [Primary Care Provider] - 1-2 days Time of Disposition: 18:59
[2025-03-15] MEDS: IBUPROFEN 800 MG TAB PO STA (19:03)
[2025-03-15 19:23] VITALS: BP 140/89; PULSE 75
== END 2025-03-15 19:30 | disposition home or self-care (01) ==
LOC: EC 17:24
DX: S63.91XA Sprain of unspecified part of right wrist and hand, initial encounter (principal); Z87.891 Personal history of nicotine dependence; W22.8XXA Striking against or struck by other objects, initial encounter
CPT/HCPCS: 99283